=== PATIENT | male | born 1995 | race Caucasian/White ===

== ENCOUNTER 2017-02-09 19:28 | Emergency (ER) | payer BC ==
--- NOTE | 2017-02-09 19:39 | UC ---
Abdominal Pain Male HPI - HPI Summary HPI Summary: 21 year old male presents with epigastric pain. - History of Current Complaint Stated Complaint: ABDOMINAL PAIN Time Seen by Provider: 02/09/17 19:39 Hx Obtained From: Patient Onset/Duration: Sudden Onset Severity Initially: Moderate Severity Currently: Moderate Pain Scale Used: 0-10 Numeric - 5 - Allergies/Home Medications Allergies/Adverse Reactions: Allergies Allergy/AdvReac Type Severity Reaction Status Date / Time No Known Allergies Allergy Verified 02/09/17 19:41 Home Medications: Home Medications Calcium Carbonate CHEW TAB* [Tums*] PRN 02/09/17 [History] PMH/Surg Hx/FS Hx/Imm Hx Previously Healthy: Yes Review of Systems Constitutional: Negative Skin: Negative Eyes: Negative ENT: Negative Respiratory: Negative Cardiovascular: Negative Gastrointestinal: Negative Genitourinary: Negative Motor: Negative Neurovascular: Negative Musculoskeletal: Negative Neurological: Negative Psychological: Negative All Other Systems Reviewed And Are Negative: Yes Physical Exam Triage Information Reviewed: Yes Vital Signs Reviewed: Yes Eye Exam: Normal ENT Exam: Normal Dental Exam: Normal Neck exam: Normal Neck: Positive: 1 Respiratory Exam: Normal Cardiovascular Exam: Normal Abdominal Exam: Normal Abdomen Description: Positive: Other: - epigastric pain Musculoskeletal Exam: Normal Neurological Exam: Normal Psychological Exam: Normal Skin Exam: Normal Abd Pain Male Course/Dx - Differential Dx/Clinical Impression Provider Diagnoses: abdominal pain. epigastric pain Discharge - Discharge Plan Condition: Stable Disposition: HOME Prescriptions: Ranitidine HCl [Zantac 150 Maximum Streng] 150 mg PO BID #30 tab Sucralfate TAB* [Carafate*] 1 gm PO ACHS #60 tab Patient Education Materials: Peptic Ulcer (ED), Gastritis (ED) Referrals: No Primary Care Phys,NOPCP [Primary Care Provider] - Romero Soto MD [Medical Doctor] -
[2017-02-09 19:42] VITALS: BP 135/84
[2017-02-09] MEDS ORDERED: Al Hydrox/Mg Hydrox/Simet LIQ* 30 ML UDC PO ONE (19:46)
[2017-02-09] MEDS ORDERED: SCOP/HYOS/ATR/PB(NF) 10 ML UDC PO ONE (19:46)
[2017-02-09] MEDS ORDERED: Lidocaine 2% VISCOUS* 15 ML UDC PO ONE (19:47)
[2017-02-09] MEDS ORDERED: diPHENhydraMINE IV* 50 MG/ML 1 ml VIAL (BENADRYL) IM ONE (20:17)
[2017-02-09] MEDS ORDERED: diPHENhydraMINE IV* 50 MG/ML 1 ml VIAL (BENADRYL) IV ONE (20:18)
[2017-02-09] MEDS ORDERED: NS 0.9% 1000 ML* 1,000 ML IV ONE (20:18)
== END 2017-02-09 20:16 | disposition home or self-care (01) ==
LOC: UCEAST 19:28
DX: R10.13 Epigastric pain (principal)
CPT/HCPCS: 99202; A9270-GY; G0463

== ENCOUNTER 2018-03-27 14:48 | Emergency (ER) | payer SELFPAY ==
[2018-03-27 15:02] VITALS: BP 119/80
--- NOTE | 2018-03-27 15:10 | UC ---
Lower Extremity/Ankle HPI - HPI Summary HPI Summary: 22-year-old male comes to clinic today with a chief complaint of right ankle pain. He tripped and fell over a piece of furniture just prior to arrival. He is primarily on the lateral malleolus. Pain is worse with movement and weightbearing but he is able to weight-bear. No skin break. Elevation and rest decreases the pain. Pain is mild to moderate. - History of Current Complaint Chief Complaint: UCLowerExtremity Stated Complaint: ANKLE INJURY Time Seen by Provider: 03/27/18 15:05 Pain Intensity: 5 - Allergies/Home Medications Allergies/Adverse Reactions: Allergies Allergy/AdvReac Type Severity Reaction Status Date / Time No Known Allergies Allergy Verified 03/27/18 15:02 Home Medications: Home Medications NK [No Home Medications Reported] 03/27/18 [History Confirmed 03/27/18] PMH/Surg Hx/FS Hx/Imm Hx Previously Healthy: Yes - Surgical History Surgical History: None - Family History Known Family History: Positive: Non-Contributory - Social History Alcohol Use: Occasionally Substance Use Type: None Smoking Status (MU): Never Smoked Tobacco Review of Systems All Other Systems Reviewed And Are Negative: Yes Constitutional: Positive: Negative Skin: Positive: Negative Eyes: Positive: Negative ENT: Positive: Negative Respiratory: Positive: Negative Cardiovascular: Positive: Negative Gastrointestinal: Positive: Negative Motor: Positive: Negative Neurovascular: Positive: Negative Musculoskeletal: Positive: Other: - SEE HPI Neurological: Positive: Negative Psychological: Positive: Negative Is Patient Immunocompromised?: No Physical Exam Triage Information Reviewed: Yes Appearance: Well-Appearing, No Pain Distress, Well-Nourished Vital Signs: Initial Vital Signs Temp 99.0 F 03/27/18 14:58 Pulse 75 03/27/18 14:58 Resp 18 03/27/18 14:58 BP 119/80 03/27/18 14:58 Pulse Ox 99 03/27/18 14:58 Vital Signs Reviewed: Yes Eye Exam: Normal Eyes: Positive: Conjunctiva Clear Neck exam: Normal Neck: Positive: Supple Respiratory: Positive: No respiratory distress Musculoskeletal: Positive: Other: - SWELLING AND TENDERNESS TO PALPATION AT RT LATERAL MALLEOLUS. NORMAL CAPILLARY REFILL. NO SENSATION DEFICIT. ANKLE/FOOT FROM. NL PULSES. Neurological Exam: Normal Neurological: Positive: Alert, Muscle Tone Normal Psychological Exam: Normal Psychological: Positive: Normal Response To Family, Age Appropriate Behavior Skin Exam: Normal Lower Extremity Course/Dx - Course Course Of Treatment: Order Information: ANKLE RIGHT 3+VWS. Accession Number: [id number]. CPT: 13015. INDICATION: Right ankle injury. TECHNIQUE: 3 views of the right ankle were obtained. FINDINGS: There is dorsal soft tissue swelling. The bones are in normal alignment. No. fracture is seen. Joint spaces appear maintained. IMPRESSION: SOFT TISSUE SWELLING, NO FRACTURE IS SEEN. . < Electronically signed by Antonio Arizmendi MD in [facility]> 03/27/18 0812. I discussed the x-ray report with the patient. Plan now is an Salvador wrap gel splint ice elevation and ibuprofen crutches weightbearing as tolerated and follow up with his primary care doctor or sports medicine if not completely improved. - Differential Dx/Diagnosis Provider Diagnosis: Right ankle sprain Discharge - Sign-Out/Discharge Documenting (check all that apply): Patient Departure All imaging exams completed and their final reports reviewed: Yes - Discharge Plan Condition: Stable Disposition: HOME Patient Education Materials: Ankle Sprain (ED) Referrals: [facility] @ [Outside] Additional Instructions: FOLLOW UP WITH YOUR DOCTOR IF NOT COMPLETELY IMPROVED. GET RECHECKED FOR ANY WORSENING OF YOUR CONDITION OR QUESTIONS OR CONCERNS. - Billing Disposition and Condition Condition: STABLE Disposition: Home
== END 2018-03-27 16:16 | disposition home or self-care (01) ==
LOC: UCEAST 14:48
DX: S93.401A Sprain of unspecified ligament of right ankle, initial encounter (principal); W18.09XA Striking against other object with subsequent fall, initial encounter; Y92.9 Unspecified place or not applicable
CPT/HCPCS: 99213; G0463